=== PATIENT | male | born 1995 | race Caucasian/White ===

== ENCOUNTER 2019-02-12 15:51 | Emergency (ER) | payer BC ==
--- NOTE | 2019-02-12 18:34 | ED ---
Back Pain - HPI Summary HPI Summary: 22-year-old male presents with back pain for the past couple days. He states he slipped and landed on his back. He states he has point tenderness on the right side of his lower back. No numbness or tingling. no loss of bowel or bladder or saddle anesthesia. No blood in his urine. Denies any urinary symptoms. No pain or tingling to his legs. No difficulty walking. States has no pain until tries to move from side to side. Has been taking Aleve and Flexeril for pain. - History of Current Complaint Chief Complaint: EDBackInjuryPain Stated Complaint: BACK PAIN PER PT Time Seen by Provider: 02/12/19 18:16 Pain Intensity: 5 - Allergies/Home Medications Allergies/Adverse Reactions: Allergies Allergy/AdvReac Type Severity Reaction Status Date / Time No Known Allergies Allergy Verified 02/12/19 16:02 PMH/Surg Hx/FS Hx/Imm Hx Endocrine/Hematology History: Denies: Hx Anticoagulant Therapy Cardiovascular History: Denies: Hx Myocardial Infarction Sensory History: Denies: Hx Legally Blind, Hx Deafness Opthamlomology History: Denies: Hx Legally Blind Infectious Disease History: No Infectious Disease History: Denies: Traveled Outside the [place] in Last 30 Days - Family History Known Family History: Positive: Hypertension - Father Negative: Diabetes - Social History Alcohol Use: Occasionally Hx Substance Use: Yes Substance Use Type: Reports: Marijuana Hx Tobacco Use: No Review of Systems Negative: Fever Negative: Chest Pain Negative: Shortness Of Breath Positive: Myalgia - back pain All Other Systems Reviewed And Are Negative: Yes Physical Exam Triage Information Reviewed: Yes Vital Signs On Initial Exam: Initial Vitals Temp Pulse Resp BP Pulse Ox 98.5 F 72 16 146/72 99 02/12/19 16:00 02/12/19 16:00 02/12/19 16:00 02/12/19 16:00 02/12/19 16:00 Vital Signs Reviewed: Yes Appearance: Positive: Well-Appearing Skin: Positive: Warm, Dry Head/Face: Positive: Normal Head/Face Inspection Eyes: Positive: Normal, Conjunctiva Clear ENT: Positive: Pharynx normal Respiratory/Lung Sounds: Positive: Clear to Auscultation, Breath Sounds Present Cardiovascular: Positive: Normal, RRR Musculoskeletal: Positive: Strength/ROM Intact - back, Other - tenderness right side of lower back, neg SLR, good strength lower extremity, good pulses Neurological: Positive: Normal, Reflexes Intact - patella, Normal Gait Psychiatric: Positive: Normal Diagnostics - Vital Signs Vital Signs Temp Pulse Resp BP Pulse Ox 02/12/19 16:00 98.5 F 72 16 146/72 99 - Laboratory Lab Statement: Any lab studies that have been ordered have been reviewed, and results considered in the medical decision making process. - Radiology back Radiology Interpretation Completed By: Radiologist Summary of Radiographic Findings: IMPRESSION: #. Probable grossly nondisplaced RIGHT L2 transverse process fracture. Correlate with. clinical assessment as the finding may be artifactual due to air within the overlying. bowel. Back Pain Course/Dx - Course Course Of Treatment: 22-year-old male presents with back pain for the past couple days. He states he slipped and landed on his back. He states he has point tenderness on the right side of his lower back. No numbness or tingling. no loss of bowel or bladder or saddle anesthesia. No blood in his urine. Denies any urinary symptoms. No pain or tingling to his legs. No difficulty walking. States has no pain until tries to move from side to side. Has been taking Aleve and Flexeril for pain. On exam has point tenderness over right side of lower back. Neurovascular intact. X-ray shows an L2 transverse fracture. We'll give pain medication and muscle relaxer. Told to follow-up Zoe. Patient understands agrees plan. - Diagnoses Differential Diagnosis/HQI/PQRI: Positive: Fracture, Herniated Disc, Sprain Provider Diagnoses: Lumbar transverse process fracture Discharge - Sign-Out/Discharge Documenting (check all that apply): Patient Departure Patient Received Moderate/Deep Sedation with Procedure: No - Discharge Plan Condition: Good Disposition: HOME Prescriptions: Cyclobenzaprine TAB* [Flexeril 10 MG TAB*] 10 mg PO BID PRN #12 tab PRN Reason: Pain HYDROcodone/ACETAMIN 5-325 MG* [[place] 5-325 TAB*] 1 tab PO Q6H PRN #16 tab MDD 4 PRN Reason: Pain Patient Education Materials: Thoracolumbar Fracture (ED) Referrals: [facility] - Zoe NARAYANAN [Primary Care Provider] - Vaughn Hylton MD [Medical Doctor] - Additional Instructions: follow up with zoe or neurosurgery can take muscle relaxers three times a day Use ibuprofen or Tylenol for pain every 6 hours, use norco every 6 hours for break through pain as needed ice/heat area Return to ED if develop any new or worsening symptoms - Billing Disposition and Condition Condition: GOOD Disposition: Home
[2019-02-12 18:44] VITALS: BP 135/76
== END 2019-02-12 18:42 | disposition home or self-care (01) ==
LOC: ED 15:51
DX: S32.009A Unspecified fracture of unspecified lumbar vertebra, initial encounter for closed fracture (principal); W01.0XXA Fall on same level from slipping, tripping and stumbling without subsequent striking against object, initial encounter; Y92.9 Unspecified place or not applicable
CPT/HCPCS: 72110; 99282

== ENCOUNTER → 2019-12-13 03:30 | Emergency (ER) | payer BC ==
[~2019-12-13 03:30] MED LIST: Cyclobenzaprine TAB* 10 MG PO ONE; traMADol TAB* 50 MG PO ONE
--- NOTE | 2019-12-13 07:45 | ED ---
Back Pain - HPI Summary HPI Summary: This patient is a 24-year-old male presenting to the ED with a right-sided muscle spasm which was a gradual onset over the past 2 days. He states it has been worsening and became worse again last night while trying to sleep. He denies any trauma. He denies any falls. He did have an L2 fracture from last year after a fall and states "this feels similar." He states he is concerned with an additional fracture. However, he does state he was at rest when sxs began. Worse with lying to the R side, better to the left. Denies hematuria. Denies any numbness or tingling. Denies any weakness. Denies any bladder or bowel dysfunction. - History of Current Complaint Chief Complaint: EDBackInjuryPain Stated Complaint: BACK PAIN Time Seen by Provider: 12/13/19 05:51 Hx Obtained From: Patient Onset/Duration: Gradual Onset Onset/Duration: Started Days Ago - 1.5 days ago Back Pain Location: Is Discrete @ - r sided low back pain over sciatic area Severity Initially: Moderate Severity Currently: Moderate Pain Intensity: 10 Pain Scale Used: 0-10 Numeric Character: Aching, Throbbing Aggravating Symptom(s): Movement, Lifting, Bending Alleviating Symptom(s): Rest, Position Associated Signs And Symptoms: Negative: Swelling, Weakness, Numbness, Tingling , Abdominal Pain, Flank Pain, Bladder Incontinence, Bowel Incontinence, Pain with Weight Bearing - Risk Factors AAA Risk Factors: Negative TAD Risk Factors: Negative Cauda Equina Risk Factors: Negative Epidural Abscess Risk Factors: Negative - Allergies/Home Medications Allergies/Adverse Reactions: Allergies Allergy/AdvReac Type Severity Reaction Status Date / Time No Known Allergies Allergy Verified 02/12/19 16:02 PMH/Surg Hx/FS Hx/Imm Hx Previously Healthy: Yes Endocrine/Hematology History: Denies: Hx Anticoagulant Therapy Cardiovascular History: Denies: Hx Myocardial Infarction Sensory History: Denies: Hx Legally Blind, Hx Deafness Opthamlomology History: Denies: Hx Legally Blind - Immunization History Hx Pertussis Vaccination: No Immunizations Up to Date: Unable to Obtain/Confirm Infectious Disease History: No Infectious Disease History: Denies: Traveled Outside the [place] in Last 30 Days - Family History Known Family History: Positive: Hypertension - Father Negative: Diabetes - Social History Occupation: Unemployed, Student Lives: With Family Alcohol Use: Occasionally Hx Substance Use: Yes Substance Use Type: Reports: Marijuana Hx Tobacco Use: No Smoking Status (MU): Never Smoked Tobacco Review of Systems Negative: Fever, Chills, Fatigue, Skin Diaphoresis Negative: Palpitations, Chest Pain Negative: Shortness Of Breath, Cough Positive: Arthralgia - right sided low back pain. Negative: Myalgia Skin: Negative Neurological: Negative All Other Systems Reviewed And Are Negative: Yes Physical Exam Triage Information Reviewed: Yes Vital Signs On Initial Exam: Initial Vitals Temp Pulse Resp BP Pulse Ox 98.6 F 86 18 140/80 98 12/13/19 05:30 12/13/19 05:30 12/13/19 05:30 12/13/19 05:30 12/13/19 05:30 Vital Signs Reviewed: Yes Appearance: Positive: Well-Appearing, Well-Nourished Skin: Positive: Warm, Skin Color Reflects Adequate Perfusion Head/Face: Positive: Normal Head/Face Inspection Eyes: Positive: Normal Neck: Positive: Supple, No Lymphadenopathy Respiratory/Lung Sounds: Positive: Clear to Auscultation, Breath Sounds Present Cardiovascular: Positive: RRR, Pulses are Symmetrical in both Upper and Lower Extremities Musculoskeletal: Positive: Pain @ - just above sciatic notch, no signs of trauma , no spasms witnessed, - normal gait Neurological: Positive: Normal Gait Psychiatric: Positive: Normal, Affect/Mood Appropriate Procedures - Sedation Patient Received Moderate/Deep Sedation with Procedure: No Diagnostics - Vital Signs Vital Signs Temp Pulse Resp BP Pulse Ox 12/13/19 05:30 98.6 F 86 18 140/80 98 - Laboratory Lab Statement: Any lab studies that have been ordered have been reviewed, and results considered in the medical decision making process. Back Pain Course/Dx - Course Course Of Treatment: During his course of treatment, the patient is evaluated for right-sided low back pain. Patient has pain directly over the sciatic notch on physical exam. No pain directly over the spine, cervical, thoracic or lumbar. No weakness noted in bilateral upper or lower extremities. Patient ambulating well. His pain is currently rated at 9/10, which she describes as a spasm. He denies any injury, falls or quick movements. States he feels this is a muscle injury, however is concerned with a fracture. He states he had a fracture of the L2 spine last year after a fall. He states this feels "similar. " I discussed with the patient as he does not have any pain directly over the spine and he did not experience any traumas or falls, this likely is a muscle spasm and will treat as such. At this time, he is given Flexeril and tramadol with some relief of his symptoms. Encouraged Tylenol and ibuprofen as well as heat packs at home. Will defer any x-rays at this time, however patient will return to the ED if he develops bladder or bowel dysfunction or worsening pain not well controlled with medications. - Diagnoses Differential Diagnosis/HQI/PQRI: Positive: Fracture, Herniated Disc, Strain, Sprain Provider Diagnoses: Muscle spasm Discharge ED - Sign-Out/Discharge Documenting (check all that apply): Patient Departure - Discharge Plan Condition: Stable Disposition: HOME Prescriptions: Cyclobenzaprine TAB* [Flexeril TAB*] 10 mg PO BID PRN #10 tab PRN Reason: Pain - Mild traMADol TAB* [Ultram*] 50 mg PO Q8H PRN #12 tab MDD 3 PRN Reason: Pain Patient Education Materials: Muscle Spasm (ED) Referrals: [facility] - [place] Francisco NARAYANAN [Primary Care Provider] - Additional Instructions: Ibuprofen 600mg three times daily Tylenol 650mg three times daily Flexeril 10mg twice daily Tramadol 50mg up to three times daily if ibuprofen and tylenol are not improving your symptoms Moist heat to the area as much as possible Rest - Billing Disposition and Condition Condition: STABLE Disposition: Home
[2019-12-13 08:34] VITALS: BP 145/87
== END | disposition home or self-care (01) ==
LOC: ED 03:30
DX: M62.838 Other muscle spasm (principal); M54.9 Dorsalgia, unspecified
CPT/HCPCS: 99282; A9270-GY